=== PATIENT | male | born 1965 ===

== ENCOUNTER → 2018-10-12 13:18 | Outpatient (REF) | payer OTHER, SELFPAY ==
[2018-10-12 13:54] LABS: Add Manual Diff / Slide Review NO; Basophils Absolute Auto 0 /uL (0-100); Basophils Percent Auto 1.6 % (0-2); Eosinophils Absolute Auto 100 /uL (0-450); Eosinophils Percent Auto 5.7 % (2-4); Hematocrit 42.7 % (41-53); Hemoglobin 14.3 g/dL (13.5-17.5); Lymphocytes Absolute Auto 1200 /uL (1100-4500); Lymphocytes Percent Auto 50.8 % (25-40); Mean Corpuscular HGB Conc 33.4 % (30-36); Mean Corpuscular Hemoglobin 29.7 PG (26-34); Mean Corpuscular Volume 88.7 fL (80-100); Monocytes Absolute Auto 200 /uL (0-900); Monocytes Percent Auto 6.7 % (3-14); Neutrophils Absolute Auto 800 /uL (1500-7000); Neutrophils Percent Auto 35.2 % (50-75); Platelet Count 250 X10^3/uL (150-400); Red Blood Cell Count 4.81 X10^6/uL (4.5-5.9); Red Cell Distribution Width 13.9 % (11.6-14.8); White Blood Cell Count 2.4 X10^3/uL (4.5-11.0)
[2018-10-12 13:56] LABS: Alanine Aminotransferase 31 IU/L (21-72); Albumin 4.6 g/dL (3.5-5.0); Albumin Globulin Ratio 1.5 (1.0-2.8); Alkaline Phosphatase 48 U/L (38-126); Aspartate Aminotransferase 33 IU/L (17-59); Bilirubin Total 0.8 mg/dL (0.2-1.3); Blood Urea Nitrogen 16 mg/dL (9-20); Carbon Dioxide 27 mmol/L (22-32); Chloride 100 mmol/L (98-107); Estimated Glomerular Filt Rate > 60.0 mL/min (>60); Globulin 3.1 g/dL (1.7-4.1); Glucose 77 mg/dL (70-100); HEMOLYSIS < 15 (0-50); Potassium 4.2 mmol/L (3.4-5.1); Sodium 138 mmol/L (137-145); Total Protein 7.7 g/dL (6.3-8.2)
[2018-10-12 14:22] LABS: Erythrocyte Sedimentation Rate 4 MM/HR (0-15); Hemoglobin A1C% w Est Avg Glu 5.3 % (4.0-6.0)
[2018-10-12 14:26] LABS: Thyroid Stimulating Hormone 2.19 uIU/mL (0.47-4.68)
== END ==
LOC: LAB 13:18
PROVIDERS: Visit Provider Family Medicine
DX: D64.9 Anemia, unspecified (principal); R53.83 Other fatigue
CPT/HCPCS: 36415; 80053; 83036; 84443; 85025; 85651

== ENCOUNTER → 2018-10-25 19:37 | Outpatient (REF) | payer OTHER, SELFPAY ==
[2018-10-25 20:10] LABS: Vitamin D 25 Hydroxy (D3) 43.6 ng/mL (30.0-100.0)
[2018-10-25 20:34] LABS: Erythrocyte Sedimentation Rate 4 MM/HR (0-15)
[2018-10-25 21:00] LABS: Folate > 20.0 ng/mL (2.76-20.0); Vitamin B12 > 1000 pg/mL (239-931)
== END ==
LOC: LAB 19:37
PROVIDERS: Visit Provider Family Medicine
DX: R53.83 Other fatigue (principal); R53.81 Other malaise
CPT/HCPCS: 36415; 82306; 82607; 82728; 82746; 85651